=== PATIENT | female | born 1985 | race American Indian/Alaskan Native ===

== ENCOUNTER → 2019-01-14 | Outpatient (CLI) | payer MEDICAID | END | disposition home or self-care (01) | LOC: SLR 11:00 | PROVIDERS: ATTEND Otolaryngology | DX: G47.33 Obstructive sleep apnea (adult) (pediatric) (principal); R40.0 Somnolence; R06.83 Snoring; E66.9 Obesity, unspecified | CPT/HCPCS: G0399 ==

== ENCOUNTER 2021-02-13 09:36 | Outpatient (CLI) | payer MEDICAID ==
--- NOTE | 2021-02-13 11:51 | Fluoroscopy Report ---
BARIUM SWALLOW Indication: MORBID OBESITY. Technique: Single and double contrast barium technique utilized to evaluate the esophagus. FINDINGS: To begin the exam, swallowing was evaluated in the lateral position under direct fluorosco py. Swallowing was normal. No mucosal irregularity, mass, mass effect, or critical stenosis. There were no abnormal tertiary c ontractions as seen with dysmotility. No gastroesophageal reflux. IMPRESSION: Unremarkable exam. Fluoroscopic time: 1.2 minutes Number of fluoroscopic images: 17 Signer Name: William Garrett Jr, MD Signed: 02/13/2021 11:46 AM Workstation Name: [id number]
--- NOTE | 2021-02-13 15:05 | Electrocardiograph Report ---
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
--- NOTE | 2021-02-13 15:06 | Treadmill Report ---
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
== END 2021-02-13 09:37 | disposition home or self-care (01) ==
LOC: FLUORO 09:36
PROVIDERS: ATTEND Surgery
DX: Z01.818 Encounter for other preprocedural examination (principal); E66.01 Morbid (severe) obesity due to excess calories
CPT/HCPCS: 74220; 93005; 93017

== ENCOUNTER 2021-02-14 11:29 | Day surgery (SDC) | payer MEDICAID ==
[~2021-02-14 11:29] MED LIST: SODIUM CHLORIDE 0.9% 1000 ML 1,000 ML IV SCH
--- NOTE | 2021-02-14 12:08 | Operative Report ---
Operative Report Operative Report: DATE: 02/14/2021 SURGERY: Upper endoscopy. SURGEON: Michele Oneill M.D. PROCEDURE: EGD with biopsy PRE OP DX: morbid obesity, GERD POST OP DX: morbid obesity, GERD TYPE OF ANESTHESIA: MAC. ESTIMATED BLOOD LOSS: None. COMPLICATIONS: None. SPECIMENS REMOVED: antral biopsy FINDINGS: 1. Small hiatal hernia. 2. Otherwise, normal esophagus, stomach and first portion of duodenum. INDICATIONS:INDICATION FOR PROCEDURE: Patient is a 35-year-old female with a long history of morbid obesity. She is planned to have a weight loss procedure and is here for preoperative planning EGD. PROCEDURE DETAILS: After consent was reviewed, patient was taken back to the operating room where patient was placed in the left lateral decubitus position and a bite block was placed in the mouth. After a time-out was called, MAC anesthesia was initiated. I then passed the endoscope into her oropharynx, into her esophagus, visualized the entire esophagus, which was all within normal limits. Z-line was noted to about 40 cm from incisors. I then visualized the stomach and the first portion of the duodenum and there were no abnormalities I could clearly visualize except for antral gastritis. A cold forceps biopsy of the antrum was taken and will be sent to pathology to evaluate for H.pylori. I then retroflexed the scope in the stomach and visualized the hiatus and I could see a small hiatal hernia. I then desufflated the stomach and removed the endoscope. Patient tolerated procedure well and was transferred to recovery room in good and stable condition.
--- NOTE | 2021-02-14 12:09 | Discharge Summary ---
Providers - Providers Date of Admission: 02/14/2021 Date of discharge: 02/14/21 Attending physician: PATSY WAHL MD Primary care physician: MANNEQUIN REFINISHER Hospitalization Reason for admission: EGD Condition: Good Procedures: EGD with biopsy Hospital course: Pt presented for a pre-op EGD as part of planning for up coming bariatric surgery. Procedure was uneventful and pt recovered well and was discharged to home. Disposition: DC-01 TO HOME OR SELFCARE Final Discharge Diagnosis (Prints w/discharge instructions): GERD, morbid obesity Core Measure Documentation - Palliative Care Palliative Care/ Comfort Measures: Not Applicable - Core Measures Any of the following diagnoses?: none Exam - Physical Exam Narrative exam: unchanged from pre-op Plan Activity: advance as tolerated Diet: low carbohydrate Follow up with: PRIMARY CAREMD [Primary Care Provider] - 7 Days
--- NOTE | 2021-02-14 12:22 | Anesthesia Day of Surgery ---
Anesthesia Day of Surgery - Day of Surgery Patient Examined: Yes Patient H&P Reviewed: Yes Patient is NPO: Yes
--- NOTE | 2021-02-14 12:23 | Anesthesia Consultation ---
Anesthesia Consult and Med Hx Date of service: 02/14/21 - Airway Anesthetic Teeth Evaluation: Poor (Rotten from lupus) ROM Head & Neck: Adequate Mental/Hyoid Distance: Adequate Mallampati Class: Class II Intubation Access Assessment: Good - Pre-Operative Health Status ASA Pre-Surgery Classification: ASA3 Proposed Anesthetic Plan: MAC - Pulmonary Hx Smoking: Yes (Just quit 3w ago) - Gastrointestinal Hx Gastroesophageal Reflux Disease: No - Hematic Hx Sickle Cell Disease: No - Other Systems Hx Obesity: Yes
[2021-02-14] MEDS ORDERED: propofoL 200 MG/20 ML VIAL IV ONE (12:26)
[2021-02-14] MEDS ORDERED: LIDOCAINE MPF (2%) 20 MG/1 ML VIAL 5 ML ONE (12:26)
[2021-02-14] MEDS ORDERED: ONDANSETRON 4 MG/2 ML INJ ONE (12:26)
[2021-02-14 13:37] VITALS: BP 135/85
--- NOTE | 2021-02-14 19:31 | Post Anesthesia Evaluation ---
- Post Anesthesia Evaluation Patient Participated: Yes Airway Patent: Yes Stable Respiratory Function: Yes Nausea/Vomiting: No Temp > 96.8F: Yes Pain Manageable: Yes Adequeate Hydration: Yes Anesthesia Complications: No Block Receding Appropriately: Not Applicable Patient on Ventilator: No
== END 2021-02-14 13:40 | disposition home or self-care (01) ==
LOC: GIO 11:29
PROVIDERS: ATTEND Surgery
DX: K21.9 Gastro-esophageal reflux disease without esophagitis (principal); E66.01 Morbid (severe) obesity due to excess calories; K44.9 Diaphragmatic hernia without obstruction or gangrene; K29.70 Gastritis, unspecified, without bleeding; Z88.8 Allergy status to other drugs, medicaments and biological substances; Z79.899 Other long term (current) drug therapy; Z87.891 Personal history of nicotine dependence; Z68.42 Body mass index [BMI] 45.0-49.9, adult
CPT/HCPCS: 43239; 81025; 88305; 88342; J2405; J2704; J7030

== ENCOUNTER 2021-03-08 11:18 | Outpatient (CLI) | payer MEDICAID ==
--- NOTE | 2021-03-09 23:51 | Pulmonary Function Test ---
DATE OF VISIT: 03/08/2021 PULMONARY FUNCTION TEST SPIROMETRY: FVC 2.62 liters, which is 77% of predicted. FEV1 is 2.15 liters, which is 75% of predicted. FEV1/FVC ratio is 82. Flow volume loop FEF 25-75%, 2.33 liters per second, which is 72% of predicted, is normal. IMPRESSION: Normal spirometry. TID: [id number] RECEIPT: [id number] [facility] cc: Michele Oneill
--- NOTE | 2021-03-23 14:53 | Pulmonary Function Test ---
DATE OF VISIT: 03/08/2021 PULMONARY FUNCTION TEST SPIROMETRY: FVC 2.62 liters, which is 77% of predicted. FEV1 is 2.15 liters, which is 75% of the predicted. FEV1/FVC ratio is 82. Flow volume loop, FEF 25-75% is 2.33 liters per second, which is 71% of the predicted. IMPRESSION: This is a normal spirometry. TID: [id number] RECEIPT: [id number] [facility] cc: PATSY WAHL
== END 2021-03-08 11:19 | disposition home or self-care (01) ==
LOC: PF 11:18
PROVIDERS: ATTEND Surgery
DX: E66.2 Morbid (severe) obesity with alveolar hypoventilation (principal)
CPT/HCPCS: 94010